=== PATIENT | female | born 1990 | race Two or more races ===

== ENCOUNTER → 2019-07-14 | Outpatient (CLI) | payer OTHER | END | disposition home or self-care (01) | LOC: PRENATAL 14:10 | DX: O35.3XX0 Maternal care for (suspected) damage to fetus from viral disease in mother, not applicable or unspecified (principal); O99.89 Other specified diseases and conditions complicating pregnancy, childbirth and the puerperium ==

== ENCOUNTER 2019-11-01 19:04 | Inpatient (IN) | payer OTHER ==
[~2019-11-01] VITALS: Ht 157.5 cm; Wt 82.6 kg
[2019-11-01] MEDS ORDERED: SYNTHROID50 MCG PO (19:42)
[2019-11-01] MEDS ORDERED: PRENATAL CAPLE1 EAC1 PO (19:42)
[2019-11-03] MEDS ORDERED: PEPCID AC20 MG PO (10:33)
[2019-11-03] MEDS ORDERED: OBSTETRIX DHA1 EACH PO (10:34)
[2019-11-07] MEDS ORDERED: LEVOTHYROXINE50 MCG PO (08:59)
== END 2019-11-07 14:26 | disposition home or self-care (01) | DRG 807 ==
LOC: LDR 19:04 → OB/GYN 19:04
PROVIDERS: ADMIT Obstetrics & Gynecology; ATTEND Obstetrics & Gynecology
PROC: 10E0XZZ Delivery of Products of Conception, External Approach (ICD-10-PCS; principal; 2019-11-05)
PROC: 0KQM0ZZ Repair Perineum Muscle, Open Approach (ICD-10-PCS; 2019-11-05)
PROC: 3E033VJ Introduction of Other Hormone into Peripheral Vein, Percutaneous Approach (ICD-10-PCS; 2019-11-05)
PROC: 4A1HXFZ Monitoring of Products of Conception, Cardiac Rhythm, External Approach (ICD-10-PCS; 2019-11-05)
DX: O14.14 Severe pre-eclampsia complicating childbirth (principal); Z37.0 Single live birth; O99.824 Streptococcus B carrier state complicating childbirth; O70.1 Second degree perineal laceration during delivery; Z3A.36 36 weeks gestation of pregnancy